=== PATIENT | female | born 1935 | race Two or more races ===

== ENCOUNTER 2017-04-05 14:07 | Emergency (ER) | payer OTHER ==
[~2017-04-05] VITALS: Ht 165.1 cm; Wt 72.6 kg
--- NOTE | 2017-04-05 14:20 | Emergency Room Report ---
History of Present Illness General Chief Complaint: Chest Pain Source: Patient Present Illness HPI 81 yo F with pmhx of HLD, HTN, DM, hx of pancreatic mass removal (benign) p/w chest pain ~ 3 days. Localized to substernal area, no radiation to back or other areas, sharp in nature, gradual in onset, lasts 30 min, ~2 episodes/day. Occurred on exertion but can also occur at rest. - SOB. Denies palpitations, diaphoresis, n/v. This is the first occurrence of chest pain. +nausea no vomiting. Denies fever, chills, cough, abd pain. Denies trauma. Never had a stress test, never had a cardiac catheterization. Denies smoking, no family history of cardiac disease at a young age. Pt also states that she has overall not been feeling well x few weeks. Daughter in law states decreased PO intake. Allergies: Coded Allergies: No Known Allergies (Unverified , 04/05/17) Patient History Past Medical History: see triage record Past Surgical History: other - pancreatic mass removal Reviewed Nursing Documentation: PMH: Agreed, PSxH: Agreed Nursing Documentation-PMH Past Medical History: No History, Except For Hx Cardiac Problems: Yes - hyperlipidimia Hx Hypertension: Yes Hx Diabetes: Yes Review of Systems All Other Systems: negative except mentioned in HPI Physical Exam Vital Signs Date Time Temp Pulse Resp B/P (MAP) Pulse Ox O2 Delivery O2 Flow Rate FiO2 04/05/17 14:10 99.1 90 20 133/98 100 Room Air Sp02 EP Interpretation: reviewed, normal General Appearance: normal inspection, no apparent distress, alert, other - elderly female, appearing weak, Head: normocephalic, atraumatic Eyes: bilateral eye normal inspection, bilateral eye PERRL, bilateral eye EOMI ENT: normal ENT inspection, normal pharynx, normal voice, moist mucus membranes Neck: normal inspection, full range of motion, supple, no bony tend Respiratory: normal inspection, lungs clear, normal breath sounds, no respiratory distress, no retraction, no wheezing, speaking full sentences, chest symmetrical Cardiovascular #1: normal inspection, regular rate, rhythm, no edema, normal capillary refill Cardiovascular #2: 2+ radial (R), 2+ radial (L) Gastrointestinal: normal inspection, non tender, soft, non-distended, no guarding, other - well healed surgical scar on abdomen Musculoskeletal: normal inspection, back normal, normal range of motion, non- tender Neurologic: normal inspection, alert, oriented x3, responsive, motor strength/ tone normal, sensory intact, normal gait, speech normal Psychiatric: normal inspection, judgement/insight normal, memory normal Skin: normal inspection, normal color, no rash, warm/dry, well hydrated, normal turgor Medical Decision Making Diagnostic Impression: Primary Impression: Chest pain Additional Impression: Generalized weakness ER Course 81 yo F with pmhx of HLD, DM p/w CP DDX: ACS vs. CHF vs. pneumonia vs. gastritis/GERD also w/ overall generalized weakness - electrolyte disturbance / dehydration / UTI PE on differential however at this time there are other more likely diagnoses. Plan: IV access, obtain labs including troponin, EKG, CXR ASA Anticipate admission gentle hydration IVF ER course: Patient was treated with ASA. Labs - Troponin neg Patient has remained on a monitor, HD stable Disposition: Patient requires admission for chest pain. Due to patients risk factors, she has increased risk of major acute cardiac event. Patient requires admission for further workup, serial troponin, and possible stress test/cath inpatient. Patient will be transferred to [facility] - she is HD stable, no current CP. stable for xfer D/W receiving doctor, Dr Owens Please note that this Emergency Department Report was dictated using [employer] technology software, occasionally this can lead to erroneous entry secondary to interpretation by the dictation equipment. Laboratory Tests Test 04/05/17 14:25 White Blood Count 6.9 K/UL (4.8-10.8) Red Blood Count 3.88 M/UL (4.20-5.40) L Hemoglobin 12.3 G/DL (12.0-16.0) Hematocrit 38.2 % (37.0-47.0) Mean Corpuscular Volume 98 FL (80-99) Mean Corpuscular Hemoglobin 31.7 PG (27.0-31.0) H Mean Corpuscular Hemoglobin Concent 32.2 G/DL (32.0-36.0) Red Cell Distribution Width 12.0 % (11.6-14.8) Platelet Count 544 K/UL (150-450) H Mean Platelet Volume 7.1 FL (6.5-10.1) Neutrophils (%) (Auto) 45.5 % (45.0-75.0) Lymphocytes (%) (Auto) 44.4 % (20.0-45.0) Monocytes (%) (Auto) 6.4 % (1.0-10.0) Eosinophils (%) (Auto) 1.6 % (0.0-3.0) Basophils (%) (Auto) 2.1 % (0.0-2.0) H Sodium Level 133 mEQ/L (135-145) L Potassium Level 4.7 mEQ/L (3.4-4.9) Chloride Level 97 mEQ/L (98-107) L Carbon Dioxide Level 18 mEQ/L (20-30) L Anion Gap 18 (5-15) H Blood Urea Nitrogen 14 mg/dL (7-23) Creatinine 1.6 mg/dL (0.5-0.9) H Estimate Glomerular Filtration Rate mL/min (>60) Glucose Level 219 mg/dL (74-106) H Calcium Level 10.3 mg/dL (8.6-10.2) H Total Bilirubin 0.3 mg/dL (0.0-1.2) Aspartate Amino Transferase (AST) 18 U/L (5-40) Alanine Aminotransferase (ALT) 10 U/L (3-33) Alkaline Phosphatase 113 U/L (35-104) H Total Creatine Kinase 107 U/L (26-140) Creatine Kinase MB 3.1 ng/mL (< 3.8) Creatine Kinase MB Relative Index 2.8 Troponin I < 0.30 ng/mL (<=0.30) Total Protein 9.2 g/dL (6.6-8.7) H Albumin 4.3 g/dL (3.5-5.2) Globulin 4.9 g/dL Albumin/Globulin Ratio 0.8 (1.0-2.7) L EKG Diagnostic Results Rate: normal Rhythm: NSR ST Segments: no acute changes ASA given to the pt in ED: Yes Rhythm Strip Diag. Results EP Interpretation: yes Rhythm: NSR, no PVC's, no ectopy Chest X-Ray Diagnostic Results Chest X-Ray Diagnostic Results : Chest X-Ray Ordered: Yes # of Views/Limited/Complete: 1 View Indication: Chest Pain EP Interpretation: Yes Interpretation: no consolidation, no effusion, no pneumothorax Impression: No acute disease Interpreting ER Provider: Electronically signed by Anna Moreland MD Last Vital Signs Date Time Temp Pulse Resp B/P (MAP) Pulse Ox O2 Delivery O2 Flow Rate FiO2 04/05/17 14:10 99.1 90 20 133/98 100 Room Air Disposition: ADMITTED INPATIENT Condition: Anna Torres M.D. Apr 05, 2017 14:20
[2017-04-05 14:33] VITALS: BP 193/90
[2017-04-05 14:42] LABS: BASOPHILS % (AUTO) 2.1 % (0.0-2.0); EOSINOPHILS % (AUTO) 1.6 % (0.0-3.0); LYMPHOCYTES % (AUTO) 44.4 % (20.0-45.0); MEAN CORPUSCULAR HEMOGLOBIN 31.7 PG (27.0-31.0); MEAN CORPUSCULAR HGB CONC 32.2 G/DL (32.0-36.0); MEAN CORPUSCULAR VOLUME 98 FL (80-99); MEAN PLATELET VOLUME 7.1 FL (6.5-10.1); MONOCYTES % (AUTO) 6.4 % (1.0-10.0); NEUTROPHILS % (AUTO) 45.5 % (45.0-75.0); PLATELET COUNT 544 K/UL (150-450); RED BLOOD COUNT 3.88 M/UL (4.20-5.40); WHITE BLOOD COUNT 6.9 K/UL (4.8-10.8)
[2017-04-05 14:58] LABS: TROPONIN I < 0.30 ng/mL (<=0.30)
[2017-04-05 15:00] LABS: ALANINE AMINOTRANSFERASE 10 U/L (3-33); ALBUMIN/GLOBULIN RATIO 0.8 (1.0-2.7); ANION GAP 18 (5-15); ASPARTATE AMINO TRANSFERASE 18 U/L (5-40); CALCIUM 10.3 mg/dL (8.6-10.2); CARBON DIOXIDE 18 mEQ/L (20-30); CHLORIDE 97 mEQ/L (98-107); CREATININE 1.6 mg/dL (0.5-0.9); HEMOLYSIS 42; POTASSIUM 4.7 mEQ/L (3.4-4.9); SODIUM 133 mEQ/L (135-145); TOTAL PROTEIN 9.2 g/dL (6.6-8.7)
[2017-04-05 15:10] LABS: CKMB 3.1 ng/mL (< 3.8)
--- NOTE | 2017-04-05 15:11 | Diagnostic Imaging Report ---
Indication: Dyspnea Comparison: None A single view chest radiograph was obtained. Findings: No definite infiltrate or pulmonary vascular congestion identified. Surgical clips noted in the right lung apex. Degenerative changes of both shoulders noted. The heart is enlarged. The aorta is mildly enlarged consistent with atherosclerotic vascular disease. The bones are osteopenic. Impression: No acute disease
[2017-04-05] MEDS ORDERED: MARINOL5 MG ORAL (15:51)
[2017-04-05] MEDS ORDERED: METFORMIN HCL500 M1 ORAL (15:51)
[2017-04-05] MEDS ORDERED: MIRALAX17 G2 ORAL (15:54)
[2017-04-05] MEDS ORDERED: TUMS200 M1 PO (15:54)
[2017-04-05] MEDS ORDERED: BISACODYL5 MG ORAL (15:54)
[2017-04-05] MEDS ORDERED: ZOFRAN ODT4 MG ORAL (15:54)
[2017-04-05] MEDS ORDERED: LACTULOSE20 GM/301 ORAL (15:54)
[2017-04-05] MEDS ORDERED: VITAMIN C500 M1 ORAL (15:54)
[2017-04-05] MEDS ORDERED: FERROUS SULFAT325 MG ORAL (15:54)
[2017-04-05] MEDS ORDERED: ROBITUSSIN COU237 M1 PO (15:54)
[2017-04-05 16:09] LABS: APPEARANCE,URINE CLEAR; KETONES,URINE NEGATIVE (NEGATIVE); LEUKOCYTE ESTERASE ,URINE NEGATIVE (NEGATIVE); NITRITE,URINE NEGATIVE (NEGATIVE); PH,URINE 5 (4.5-8.0); PROTEIN,URINE NEGATIVE (NEGATIVE); UROBILINOGEN,URINE NORMAL MG/DL (0.0-1.0)
[2017-04-05 16:45] VITALS: BP 204/71
[2017-04-05 17:44] VITALS: BP 172/68
[2017-04-05 18:55] VITALS: BP 110/83
[2017-04-05 19:05] VITALS: BP 110/83
== END 2017-04-05 19:10 | disposition short-term general hospital (02) ==
LOC: EMR 14:45
DX: R07.9 Chest pain, unspecified (principal); R53.1 Weakness; I10 Essential (primary) hypertension; E11.9 Type 2 diabetes mellitus without complications; R11.0 Nausea; N39.0 Urinary tract infection, site not specified; E86.0 Dehydration; M85.80 Other specified disorders of bone density and structure, unspecified site; I51.7 Cardiomegaly
CPT/HCPCS: 36415; 71010; 80053; 81003; 82550; 82553; 84484; 85025; 96374; 99285; J7040

== ENCOUNTER 2017-10-10 09:20 | Emergency (ER) | payer OTHER ==
[~2017-10-10] VITALS: Ht 167.6 cm; Wt 83.9 kg
[2017-10-10 09:20] VITALS: BP 110/86
[~2017-10-10 09:20] MED LIST: BISACODYL5 MG ORAL; Bacitracin Oint UD TOPIC ONE; FERROUS SULFAT325 MG ORAL; LACTULOSE20 GM/301 ORAL; MARINOL5 MG ORAL; METFORMIN HCL500 M1 ORAL; MIRALAX17 G2 ORAL; ROBITUSSIN COU237 M1 PO; TUMS200 M1 PO; Tetanus/Diptheria/Pertussis Vaccine 0.5ml Syr IM ONE; VITAMIN C500 M1 ORAL; ZOFRAN ODT4 MG ORAL
[2017-10-10 09:59] LABS: BASOPHILS % (AUTO) 1.5 % (0.0-2.0); EOSINOPHILS % (AUTO) 0.3 % (0.0-3.0); HEMATOCRIT 35.2 % (37.0-47.0); HEMOGLOBIN 11.5 G/DL (12.0-16.0); LYMPHOCYTES % (AUTO) 14.4 % (20.0-45.0); MEAN CORPUSCULAR VOLUME 95 FL (80-99); MONOCYTES % (AUTO) 6.2 % (1.0-10.0); NEUTROPHILS % (AUTO) 77.6 % (45.0-75.0); PLATELET COUNT 376 K/UL (150-450); RED BLOOD COUNT 3.72 M/UL (4.20-5.40); RED CELL DISTRIBUTION WIDTH 12.7 % (11.6-14.8); WHITE BLOOD COUNT 8.7 K/UL (4.8-10.8)
[2017-10-10 10:04] LABS: INR 1.1 (0.9-1.1)
--- NOTE | 2017-10-10 10:09 | Diagnostic Imaging Report ---
Indications: Left forehead swelling status post fall with head trauma Technique: Spiral acquisitions obtained through the brain. Angled axial and coronal 5 x 5 mm slices were reconstructed. Total dose length product 1340 mGycm. CTDI vol(s) 70 mGy. Dose reduction achieved using automated exposure control Comparison: None. Findings: There is a left supraorbital multiloculated scalp hematoma/contusion. No underlying calvarial fracture demonstrated. No acute intracranial hemorrhage or edema, mass effect, nor midline shift. There is age-related enlargement of the ventricles and extra-axial CSF spaces. There is periventricular deep white matter low attenuation consistent with chronic ischemic change. 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 There is an osteolytic lesion within the left frontal calvarium which measures 17 x 9 mm. This demonstrates suggestion of internal calcifications. There is questionably an osteolytic lesion versus venous bronson in the right occipital calvarium which measures 10 mm diameter. Impression: Evidence of left supraorbital scalp soft tissue trauma. 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 Appearance nonspecific, but does raise concern for neoplasm. Correlate with clinical history, consider bone scan or MRI for further evaluation if clinically indicated. There is also a small osteolytic lesion of the right occipital skull, which could represent a true osteolytic lesion versus benign physiologic process such as a venous bronson Chronic and age-related changes, as described Old right internal capsule lacunar infarct The CT scanner at [facility] is accredited by the [employer] and the scans are performed using protocols designed to limit radiation exposure to as low as reasonably achievable to attain images of sufficient resolution adequate for diagnostic evaluation.
[2017-10-10 10:10] LABS: ALANINE AMINOTRANSFERASE 16 U/L (12-78); ALBUMIN 3.7 G/DL (3.4-5.0); ALBUMIN/GLOBULIN RATIO 0.8 (1.0-2.7); ALKALINE PHOSPHATASE 115 U/L (46-116); ANION GAP 9 mmol/L (5-15); ASPARTATE AMINO TRANSFERASE 21 U/L (15-37); BILIRUBIN,TOTAL 0.5 MG/DL (0.2-1.0); BLOOD UREA NITROGEN 21 mg/dL (7-18); CALCIUM 9.9 MG/DL (8.5-10.1); CARBON DIOXIDE 25 MMOL/L (21-32); CHLORIDE 97 MMOL/L (98-107); CREATINE KINASE 136 U/L (26-308); CREATININE 1.9 MG/DL (0.55-1.30); POTASSIUM 5.1 MMOL/L (3.5-5.1); SODIUM 131 MMOL/L (136-145)
[2017-10-10 10:38] LABS: APPEARANCE,URINE CLEAR; BILIRUBIN, URINE NEGATIVE (NEGATIVE); COLOR,URINE PALE YELLOW; GLUCOSE, URINE (UA) 4+ (NEGATIVE); KETONES,URINE NEGATIVE (NEGATIVE); LEUKOCYTE ESTERASE ,URINE 3+ (NEGATIVE); NITRITE,URINE NEGATIVE (NEGATIVE); PH,URINE 7 (4.5-8.0); PROTEIN,URINE 2+ (NEGATIVE); UROBILINOGEN,URINE NORMAL MG/DL (0.0-1.0)
--- NOTE | 2017-10-10 10:48 | Diagnostic Imaging Report ---
Indication: Shortness of breath Technique: One view of the chest Comparison: 04/05/2017 Findings: Less optimal inspiration currently. No definite acute infiltrates, effusions, or congestion. There is mild central bronchial wall thickening Tortuous ectatic calcified aorta. Surgical clips again project in the right supraclavicular region. There are degenerative changes of both shoulders again noted Impression: No acute process
[2017-10-10 11:00] VITALS: BP 189/92
[2017-10-10] MEDS ORDERED: cefTRIAXone 1 GM in NS 55 ML IVPB ONE (11:45)
[2017-10-10] MEDS ORDERED: Lisinopril 10mg tab ORAL ONE (12:15)
[2017-10-10 13:07] VITALS: BP 136/77
[2017-10-10 13:18] VITALS: BP 188/71
--- NOTE | 2017-10-10 13:47 | Emergency Room Report ---
History of Present Illness General Chief Complaint: Multiple Trauma/Fall Source: Patient Present Illness HPI Patient was picked up by paramedics. She was in the streets. She fallen and hit her head. They claim that she was able to answer questions with her however when they arrived here they stated that she was incoherent. The patient is unable to give a history at this time. Unknown tetanus status. During her evaluation emergency Department a daughter in law came. She states that the patient was left by family on at home. They're unaware of what medications she should be taking. Allergies: Coded Allergies: No Known Allergies (Unverified , 04/05/17) Patient History Limited by: medical condition Past Medical History: see triage record Past Surgical History: other - abdominal surgery Social History Narrative home alone at this time Born [place] Reviewed Nursing Documentation: PMH: Agreed, PSxH: Agreed Nursing Documentation-PMH Past Medical History: No History, Except For Hx Cardiac Problems: Yes - hyperlipidimia Hx Hypertension: Yes Hx Diabetes: Yes Hx Gastrointestinal Problems: Yes - hx of surgery on abdomen. Review of Systems All Other Systems: limited Physical Exam Vital Signs Date Time Temp Pulse Resp B/P (MAP) Pulse Ox O2 Delivery O2 Flow Rate FiO2 10/10/17 08:56 99.0 100 18 110/86 100 Room Air 99.0 Sp02 EP Interpretation: reviewed, normal General Appearance: well appearing, no apparent distress, alert, other - confused Head: normocephalic Eyes: left eye other - hematoma and laceration, bilateral eye normal inspection , bilateral eye PERRL, bilateral eye EOMI ENT: moist mucus membranes Neck: supple Respiratory: chest non-tender, lungs clear, normal breath sounds Cardiovascular #1: regular rate, rhythm Cardiovascular #2: 2+ radial (R) Gastrointestinal: normal inspection, normal bowel sounds, non tender, no mass, non-distended Musculoskeletal: back normal, gait/station normal, normal range of motion Neurologic: alert, motor strength/tone normal, DTRs symmetric, sensory intact, oriented - X1 - gibberish Psychiatric: mood/affect normal Skin: warm/dry, hematoma, laceration - L eyebrow Procedures Laceration/Wound Repair Laceration/Wound Repair : Wound Location: face Wound's Depth, Shape: superficial Wound Length (cm): 0 - 0.5 Wound Explored: clean Betadine Prep?: Yes Wound Debrided: none Wound Repaired With: Dermabond Sterile Dressing Applied?: No Splint Applied?: No Patient Tolerated: Well Complications: None Progress second wound cleaned and bacitracin applied Medical Decision Making Diagnostic Impression: Primary Impression: Hyperglycemia Additional Impressions: Multiple injuries due to trauma Declining functional status Osteolytic lesion HTN (hypertension) Qualified Codes: I10 - Essential (primary) hypertension ER Course Patient presents with head trauma and altered mentation. Differential includes bleed, contusion, traumatic brain injury, functional decline, electrolyte abnormality, occult infection amongst others. Patient is unable to give us an idea of last tetanus and it will be given. In addition the lesion over her eyebrow will be repaired with Dermabond. Evaluation will be was CT of the head , EKG, chest x-ray. The patient will receive mild hydration. No neck tenderness. Lab called with glucose of 550. Patient is not acidotic. Insulin was given IV. In addition to the patient has pyuria. EKG without injury. CT no bleed. Two lesions which appear osteolytic. IV hydration and treatment the patient's mental status is starting to clear. She's able to give some history. We are contacted by her private doctor Dr. Owens. He requests the patient be transferred to [facility]. Repeat Accu-Chek was improved. Antibiotics started for the urinary tract infection. The patient most likely will need placement as family is unreliable in this is evidence is having her blood sugar not controlled at this time. BP meds given (unsure what she supposedly takes). Her PMD requests transfer. Patient improved and stable for transfer. Laboratory Tests Test 10/10/17 09:25 10/10/17 09:55 White Blood Count 8.7 K/UL (4.8-10.8) Red Blood Count 3.72 M/UL (4.20-5.40) L Hemoglobin 11.5 G/DL (12.0-16.0) L Hematocrit 35.2 % (37.0-47.0) L Mean Corpuscular Volume 95 FL (80-99) Mean Corpuscular Hemoglobin 30.9 PG (27.0-31.0) Mean Corpuscular Hemoglobin Concent 32.6 G/DL (32.0-36.0) Red Cell Distribution Width 12.7 % (11.6-14.8) Platelet Count 376 K/UL (150-450) Mean Platelet Volume 8.7 FL (6.5-10.1) Neutrophils (%) (Auto) 77.6 % (45.0-75.0) H Lymphocytes (%) (Auto) 14.4 % (20.0-45.0) L Monocytes (%) (Auto) 6.2 % (1.0-10.0) Eosinophils (%) (Auto) 0.3 % (0.0-3.0) Basophils (%) (Auto) 1.5 % (0.0-2.0) Prothrombin Time 11.4 SEC (9.30-11.50) Prothrombin Time INR 1.1 (0.9-1.1) PTT 23 SEC (23-33) Sodium Level 131 MMOL/L (136-145) L Potassium Level 5.1 MMOL/L (3.5-5.1) Chloride Level 97 MMOL/L (98-107) L Carbon Dioxide Level 25 MMOL/L (21-32) Anion Gap 9 mmol/L (5-15) Blood Urea Nitrogen 21 mg/dL (7-18) H Creatinine 1.9 MG/DL (0.55-1.30) H Estimate Glomerular Filtration Rate mL/min (>60) Glucose Level 550 MG/DL (74-106) *H Calcium Level 9.9 MG/DL (8.5-10.1) Total Bilirubin 0.5 MG/DL (0.2-1.0) Aspartate Amino Transferase (AST) 21 U/L (15-37) Alanine Aminotransferase (ALT) 16 U/L (12-78) Alkaline Phosphatase 115 U/L (46-116) Total Creatine Kinase 136 U/L (26-308) Troponin I 0.012 ng/mL (0.000-0.056) Pro-B-Type Natriuretic Peptide 2040 pg/mL (0-125) H Total Protein 8.6 G/DL (6.4-8.2) H Albumin 3.7 G/DL (3.4-5.0) Globulin 4.9 g/dL Albumin/Globulin Ratio 0.8 (1.0-2.7) L Urine Color Pale yellow Urine Appearance Clear Urine pH 7 (4.5-8.0) Urine Specific [place] 1.005 (1.005-1.035) Urine Protein 2+ (NEGATIVE) H Urine Glucose (UA) 4+ (NEGATIVE) H Urine Ketones Negative (NEGATIVE) Urine Occult Blood Negative (NEGATIVE) Urine Nitrite Negative (NEGATIVE) Urine Bilirubin Negative (NEGATIVE) Urine Urobilinogen Normal MG/DL (0.0-1.0) Urine Leukocyte Esterase 3+ (NEGATIVE) H Urine RBC 0-2 /HPF (0 - 2) Urine WBC 5-10 /HPF (0 - 2) H Urine Squamous Epithelial Cells Occasional /LPF Urine Bacteria Occasional /HPF (NONE) Urine Opiates Screen Positive (NEGATIVE) H Urine Barbiturates Screen Negative (NEGATIVE) Phencyclidine (PCP) Screen Negative (NEGATIVE) Urine Amphetamines Screen Negative (NEGATIVE) Urine Benzodiazepines Screen Negative (NEGATIVE) Urine Cocaine Screen Negative (NEGATIVE) Urine Marijuana (THC) Screen Negative (NEGATIVE) EKG Diagnostic Results Rate: normal Rhythm: NSR Rhythm Strip Diag. Results EP Interpretation: yes Rhythm: NSR, no PVC's, no ectopy Chest X-Ray Diagnostic Results Chest X-Ray Diagnostic Results : Chest X-Ray Ordered: Yes # of Views/Limited/Complete: 1 View Indication: Other EP Interpretation: Yes Interpretation: no consolidation, no effusion, no pneumothorax, other - cardiomegally Impression: Other Electronically Signed by: Electronically signed by Chadwick Boyd MD CT/MRI/US Diagnostic Results CT/MRI/US Diagnostic Results : Imaging Test Ordered: head Impression no bleed, possible osteolytic lesions X2 Last Vital Signs Date Time Temp Pulse Resp B/P (MAP) Pulse Ox O2 Delivery O2 Flow Rate FiO2 10/10/17 14:15 99.0 89 18 142/124 100 Room Air Status: improved Disposition: [facility] Condition: Serious Referrals: NOT CHOSEN IPA/,REFERRING (PCP) Chadwick Boyd M.D. Oct 10, 2017 13:47
[2017-10-10 14:00] VITALS: BP 156/97
[2017-10-10 14:15] VITALS: BP 142/124
--- NOTE | 2017-10-23 17:06 | Cardiology Report ---
APPROVED REPORT EKG Measurement Heart [id number] Normal sinus rhythm Anterior infarct, age undetermined Abnormal ECG
== END 2017-10-10 14:15 | disposition short-term general hospital (02) ==
LOC: EDBD 09:20 → EMR 11:25
DX: S01.112A Laceration without foreign body of left eyelid and periocular area, initial encounter (principal); W19.XXXA Unspecified fall, initial encounter; Y92.9 Unspecified place or not applicable; Z23 Encounter for immunization; E11.65 Type 2 diabetes mellitus with hyperglycemia; I10 Essential (primary) hypertension; E78.5 Hyperlipidemia, unspecified; M89.9 Disorder of bone, unspecified
CPT/HCPCS: 12011; 36415; 70450; 71045; 80053; 80307; 81003; 82550; 83880; 84484; 85025; 85610; 85730; 90471; 90715; 93005; 96365; 96375; 99285; J0696; J1815